=== PATIENT | female | born 1950 | race Caucasian/White ===

== ENCOUNTER → 2024-03-29 08:49 | Outpatient (REF) | payer MEDICARE, OTHER, SELFPAY | LOC: HWRAD 08:49 | PROVIDERS: ATTENDING PHYSICIAN Internal Medicine | DX: R22.1 Localized swelling, mass and lump, neck (principal) | CPT/HCPCS: 76536 ==

== ENCOUNTER 2025-08-16 12:17 | Emergency (ER) | payer MEDICARE, OTHER, SELFPAY ==
[2025-08-16 12:20] VITALS: BP 162/112
--- NOTE | 2025-08-16 13:29 | ED.GENMED ---
History of Present Illness
General
Chief Complaint: Head Injury
Source: patient
Time Seen by Provider: 08/16/25 13:11
History of Present Illness
History of Present Illness:
Note:
CHIEF COMPLAINT(S)
Headache following head injury.
HISTORY OF PRESENT ILLNESS
The patient is a 75-year-old female with a relevant history of anticoagulation therapy with Apixaban (reported as 'Eliquis'), who presents with a headache subsequent to hitting her head on the side of her car. The incident occurred on Tuesday while
she was getting into her vehicle, and she did not fall to the ground. The patient has been experiencing soreness since the injury but developed a headache yesterday, prompting her to seek medical evaluation. She states, 'I dont get headaches, but I
cant take a chance.' She denies any other symptoms such as numbness, tingling, motor weakness, changes in speech or vision, nausea, or vomiting. The patient mentions that she is scheduled for cataract surgery on Tuesday.
PHYSICAL EXAM
General: Alert, no acute distress.
Skin: Warm, dry. No hematoma noted to the head, no open wounds.
Neck: Supple, trachea midline. No cervical spine tenderness.
Eye, Ears, Nose, Mouth and Throat: Pupils are equal, round, and reactive to light. Extraocular muscles intact. Oral mucosa moist.
Cardiovascular: Normal peripheral perfusion, No edema.
Respiratory: Respirations are non-labored. No respiratory distress noted.
Gastrointestinal: Abdomen nondistended.
Back: No tenderness throughout the thoracic and lumbar spine.
Musculoskeletal: Normal range of motion, normal strength. Temporal area tenderness noted over the R temporalis muscle.
Neurological: Alert and oriented to person, place, time, and situation. No focal neurological deficits observed.
Psychiatric: Cooperative, appropriate mood & affect.
PROBLEM LIST
Acute Problems:
- Headache post minor head trauma
- Contusion over temporalis muscle
PLAN
- Reassure the patient regarding the lack of intracranial bleeding observed on CT scan.
- Advise monitoring symptoms over the weekend and communicate any worsening symptoms, such as nausea or increased headache, to the casual shoe inspector prior to scheduled cataract surgery.
- Patient is cleared for cataract surgery if symptoms remain stable or improve.
- Recommend rest and monitor for any progression of concussion symptoms.
DIFFERENTIAL DIAGNOSIS
The Differential Diagnosis includes, in no particular order and is not limited to:
1. Post-traumatic headache
2. Concussion
3. Intracranial hemorrhage (ruled out by CT scan)
4. Migraine
5. Tension-type headache
6. Sinus headache
7. Cervical strain
8. Temporal arteritis
9. Medication overuse headache
10. Vestibular dysfunction
Disposition:
SUMMARY OF ENCOUNTER
The patient, a 75-year-old female on apixaban (Eliquis) for anticoagulation therapy, presented to the emergency department following a minor head trauma sustained four days prior when she hit her head on the side of her car. She did not fall to the
ground and later developed a headache, prompting her visit. Given her anticoagulation therapy, a CT scan was performed to rule out intracranial hemorrhage. The CT scan was negative, showing no evidence of intracranial bleeding. Neurological
assessment returned normal findings.
DISPOSITION
Discharge and the patient was advised to have outpatient follow-up.
ASSESSMENT
The patient presents with a post-traumatic headache secondary to minor head injury without intracranial hemorrhage. Assessments were negative for any focal neurological deficits.
PLAN
Reassure the patient about the negative CT findings regarding intracranial bleeding. Advise the patient to monitor symptoms such as an increase in headache or new symptoms (nausea, etc.) and to communicate any progression to the casual shoe inspector
ahead of scheduled cataract surgery. Instruct the patient to rest and watch for any continued or new symptoms indicative of a concussion.
INDEPENDENT REVIEW OF LABS AND INTERPRETATION OF TESTS
My independent interpretation of the CT scan indicates no intracranial hemorrhage.
PATIENT EDUCATION AND COUNSELING
The patient was educated regarding the results of the CT scan, what symptoms to monitor for over the weekend, and the importance of rest and reporting any progression or new symptoms to her casual shoe inspector prior to the scheduled cataract surgery.
MEDICAL DECISION MAKING
-Complexity of Data Reviewed: Chronic conditions affecting care. The patient has anticoagulation therapy with Apixaban and recent minor head trauma. Differential diagnosis includes post-traumatic headache, concussion, and other potential headache
types.
-Data:
Category [address] scan independently interpreted as negative for intracranial hemorrhage.
-Risk:
Consideration of Admission/Observation: Escalation of care including admission/observation was considered given the complexity and risk of the patients presenting complaints and underlying anticoagulation therapy. However, ultimately, I feel the
patient is safe for outpatient management with close follow-up. Reasoning: Work-up reassuring, does not reveal any acute life/organ-threatening processes, patients symptoms are stable, and the patient is agreeable to discharge.
DIAGNOSIS
Post-traumatic headache (ICD-10: G44.309).
Past History
Past History
ED Past Medical History: Other (DVT) and Other (celiac ds)
ED Past Surgical History: Orthopedic
Social History
Tobacco: Non-smoker
Drug: None
Personal:
Living: with family
Family History
Family History: Other
Phy Exam
Physical Exam
Physical Exam:
.
Course
Orders/Labs/Results
Orders:
Orders
08/16/25 12:[address] [CT Head W/o Iv Contrast] Urgent
Comment:
Reason For Exam: head injury
Vital Signs
Initial and Last Documented VS:
Initial Vital Signs
Temp Pulse Resp BP Pulse Ox
98.7 F 61 15 162/112 99
08/16/25 12:20 08/16/25 12:20 08/16/25 12:20 08/16/25 12:20 08/16/25 12:20
Last Documented Vital Signs
Temp Pulse Resp BP Pulse Ox
98.7 F 61 15 162/112 99
08/16/25 12:20 08/16/25 12:20 08/16/25 12:20 08/16/25 12:20 08/16/25 13:29
*Pulse Oximetry
SaO2: 99
Oxygen Mode of Delivery: Room air
Patient hypoxic: no
*Critical Care Note
Total Time (30-74mins, 75-104mins- exclusive of procedures): Not Applicable
ED Attending Note
-
Portions of this chart may have been created with voice recognition software.� Occasional wrong word or��sound alike� substitutions may have occurred due to the inherent limitations of voice recognition software.
Discharge Plan
Departure
Patient Disposition: Home (Routine Discharge)
Date of Disposition: 08/16/25
Time of Disposition: 13:32
Patient with high blood pressure during this ER visit?: Yes
Discharge Problem:
Head injury
Instructions: Head Injury in Adults (DC), BLOOD PRESSURE
Prescriptions:
No Action
alendronate 70 MG tablet
70 mg PO DUMONT
apixaban [Eliquis] 2.5 MG tablet
2.5 mg PO BID
cholecalciferol (vitamin D3) 1,000 UNITS tablet
1,000 units PO DAILY
Bifidobacterium infantis [Align (B.infantis)] 4 MG capsule
4 mg PO DAILY
magnesium oxide 400 MG tablet
400 mg PO DAILY
cefdinir [Omnicef] 300 MG capsule
300 mg PO BID Qty: 14 0RF
Referrals:
Mark Amin MD [Family Provider, Internal Medicine]
Activity Restrictions/Additional Instructions:
Return immediately for worsening headache, vomiting, weakness of any kind or any other concerns. Please see your doctor in the next 1 week if any symptoms persist
Interventions
Interventions:
*Risk Screen - Suicide Last Done: 08/16/25 12:20
*General Assessment Last Done: 08/16/25 12:20
*Neglect/Abuse Screening Last Done: 08/16/25 12:20
*ED COVID-19 Vaccine History Last Done: 08/16/25 12:20
*ED Influenza Vaccine History Last Done: 08/16/25 12:20
Discharge Date and Time
Print Language: CYPRIOT
[2025-08-16 13:37] VITALS: BP 128/88
== END 2025-08-16 14:15 | disposition home or self-care (01) ==
LOC: EMR 12:17
PROVIDERS: EMERGENCY PHYSICIAN Emergency Medicine; FAMILY PHYSICIAN Internal Medicine
DX: S09.90XA Unspecified injury of head, initial encounter (principal); R03.0 Elevated blood-pressure reading, without diagnosis of hypertension; K90.0 Celiac disease; K86.81 Exocrine pancreatic insufficiency; Z79.01 Long term (current) use of anticoagulants; Z86.718 Personal history of other venous thrombosis and embolism; W22.09XA Striking against other stationary object, initial encounter; Y92.810 Car as the place of occurrence of the external cause
CPT/HCPCS: 99284; 70450